=== PATIENT | male | born 1925 | race Caucasian/White ===

== ENCOUNTER 2017-04-16 06:31 | Day surgery (SDC) | payer MEDICARE, BC ==
[~2017-04-16] VITALS: Ht 172.7 cm; Wt 86.2 kg
[~2017-04-16 06:31] MED LIST: AMOXICILLIN500 MG PO; ASPIRIN ADULT L81 M2 PO; FLUZONE SPLT1 M1 IM; GLUCOTROL EXTE2.5 M1 PO; LISINOPRIL10 MG PO; LISINOPRIL5 MG PO; METFORMIN1000 MG PO; METFORMIN500 M1 PO; MULTI VIT PO; PRAVASTATIN20 MG PO
[2017-04-16] MEDS ORDERED: LORTAB 5/3255 MG PO (10:44)
[2017-04-16 10:54] VITALS: BP 148/67
== END 2017-04-17 11:27 | disposition home or self-care (01) ==
LOC: ORM 06:31
PROVIDERS: ATTEND Surgery
PROC: 0HBFXZZ Excision of Right Hand Skin, External Approach (ICD-10-PCS; principal; 2017-04-16)
DX: C44.622 Squamous cell carcinoma of skin of right upper limb, including shoulder (principal); E11.9 Type 2 diabetes mellitus without complications